=== PATIENT | female | born 1970 | race Caucasian/White ===

== ENCOUNTER → 2025-03-02 | Outpatient (CLI) | payer BC, SELFPAY ==
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
== END | disposition home or self-care (01) ==
PROVIDERS: PCP Physician Assistant; Referring Provider Chiropractor; Visit Provider Chiropractor
DX: M51.379 Other intervertebral disc degeneration, lumbosacral region without mention of lumbar back pain or lower extremity pain (principal); M43.8X8 Other specified deforming dorsopathies, sacral and sacrococcygeal region; S32.10XS Unspecified fracture of sacrum, sequela; X58.XXXS Exposure to other specified factors, sequela
CPT/HCPCS: 72110